=== PATIENT | male | born 2000 | race Two or more races ===

== ENCOUNTER 2025-01-17 04:15 | Emergency (ER) | payer SELFPAY ==
[2025-01-17 04:17] VITALS: BMI 24.4
[2025-01-17 04:18] VITALS: BP 166/97; PULSE 107; RESP 19; TEMP 36.6; O2SAT 97
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
== END 2025-01-17 05:05 ==
PROVIDERS: Emergency Provider Emergency Medicine
DX: F10.10 Alcohol abuse, uncomplicated (principal); V49.40XA Driver injured in collision with unspecified motor vehicles in traffic accident, initial encounter; Y92.410 Unspecified street and highway as the place of occurrence of the external cause
CPT/HCPCS: 80320; 99281; G0480